=== PATIENT | male | born 1975 | race Caucasian/White ===

== ENCOUNTER → 2024-01-28 15:40 | Outpatient (REF) | payer BC, SELFPAY | LOC: CLAB 15:40 | PROVIDERS: ATTENDING PHYSICIAN Podiatrist Foot & Ankle Surgery | DX: S92.812G Other fracture of left foot, subsequent encounter for fracture with delayed healing (principal) | CPT/HCPCS: 88304; 88311 ==

== ENCOUNTER 2024-03-25 06:28 | Inpatient (IN) | payer BC, SELFPAY ==
[2024-03-25] VITALS (7 sets, daily range): BP systolic 97–150; BP diastolic 56–94; BMI 41.1; BMI 40.8
--- NOTE | 2024-03-25 03:34 | ED.GENMED ---
History of Present Illness
General
Chief Complaint: Abdominal Pain
Source: patient
Exam Limitations: none
Time Seen by Provider: 03/25/24 03:24
Nursing documentation reviewed up to this point in time: agreed with
History of Present Illness
History of Present Illness:
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
Past History
Past History
ED Past Medical History: GERD, HTN, Hypercholesterolemia, Psychiatric (Anxiety, ) and Other (Diverticulitis)
ED Past Surgical History: Bowel resection (Colon resection), Cholecystectomy, Orthopedic (ACL repair, Right rotator cuff) and Other (Gastric sleeve)
Social History
Tobacco: Former smoker
Alcohol: None
Drug: None
Personal:
Living: with family
Employment: Employed
Family History
Family History: Other
Review of Systems
Review of Systems
All Other Systems: Not applicable
Constitutional: Reports fever, fatigue and chills
EENT: Reports no symptoms
Respiratory: Reports no symptoms
ABD/GI: Reports abdominal pain, nausea and diarrhea
: Reports no symptoms
Musculoskeletal: Reports no symptoms
Phy Exam
Physical Exam
Physical Exam:
Physical Exam
General: 48 male looks uncomfortable warm to touch normal mental
Neck: No jaundice
Heart: Tachycardia
Lungs: no acute respiratory distress. clear bilaterally
Abdomen: Localized tenderness in the left lower abdomen
Neuro: alert and oriented. no focal neurological deficits
Skin: no rash
Psychiatric: well kept. interactive and cooperative
Extremities: no edema
Sepsis
Sepsis Screening
Sepsis Assessment: Sepsis Ruled Out
Sepsis Screen
Sepsis Screen: Sepsis Ruled Out
Date: 03/25/24
Time: 05:46
Course
Orders/Labs/Results
Orders:
Orders
03/25/24 03:14
IV Insert/Care/Rem.- Treatment PRN
03/25/24 03:33
CT Abd/pelvis W Iv Cont Urgent
Comment:
Reason For Exam: fever LLQ pain
0.9% Sodium Chloride 1000 ml [Nss] 1,000 ml IV BOLUS
Acetaminophen [Tylenol] 1,000 mg PO NOW STA
HYDROmorphone [Dilaudid] 1 mg IV NOW STA
03/25/24 03:58
Complete Blood Count/With Diff Urgent
Comprehensive Metabolic Panel Urgent
Lactate Level [Lactic Acid] Urgent
Lipase Urgent
Urinalysis Reflex To Culture Urgent
Date Specimen was Collected: 03/25/24
Time Specimen was Collected: 03:14
Blood Culture Urgent
ULYSSES Source: Blood/Venous
Specimen Description:
03/25/24 04:57
Blood Culture Urgent
ULYSSES Source: Blood/Venous
Specimen Description:
03/25/24 05:43
Zosyn 4.5 grams IVPB NOW Piperacillin/Tazo 4.5 Gram [Zosyn] 4.5 gram in 100 ml IV NOW
Abnormal Lab Results
03/25/24
03:58
WBC 12.9 H 10^3/uL
(4.8-10.8)
RBC 4.66 L 10^6/uL
(4.70-6.10)
Abs Immat Gran (auto) 0.1 H 10^3/uL
(0-0.05)
Absolute Neuts (auto) 11.1 H 10^3/uL
(1.4-6.5)
Absolute Lymphs (auto) 1.0 L 10^3/uL
(1.2-3.4)
Absolute Monos (auto) 0.8 H 10^3/uL
(0.1-0.6)
Neutrophils % 85.6 H %
(42.2-75.2)
Lymphocytes % 7.8 L %
(20.5-51.1)
Carbon Dioxide 19 L mmol/L
(22-30)
Glucose 105 H mg/dl
(70-99)
Total Bilirubin 2.2 H mg/dl
(0.2-1.3)
Urine Ketones 3+ A
(Negative)
03/25/24 03:58
03/25/24 03:58
Vital Signs
Initial and Last Documented VS:
Initial Vital Signs
Temp Pulse Resp BP Pulse Ox
100.7 F H 100 20 150/94 96
03/25/24 03:10 03/25/24 03:10 03/25/24 03:10 03/25/24 03:10 03/25/24 03:10
Last Documented Vital Signs
Temp Pulse Resp BP Pulse Ox
100.7 F H 100 20 150/94 96
03/25/24 03:10 03/25/24 03:10 03/25/24 03:10 03/25/24 03:10 03/25/24 03:10
MDM/Problems Addressed
Differential Diagnosis Includes:
Diverticulitis diverticulitis perforation, colitis, less likely appendicitis or bowel obstruction
MDM/Problems Addressed:
Abdominal pain fever
Chronic conditions affecting care: Previous abdomnial surgery
Acute Exacerbation and/or Progression of Chronic Illness: Previous abdomnial surgery
*Radiology
Radiology exam reviewed: radiology read reviewed
*Pulse Oximetry
Patient hypoxic: no
*Breaker Engineer Interpretation
Rate: tachycardiac
Interpretation: abnormal
Heart Rate: 118
*Critical Care Note
Total Time (30-74mins, 75-104mins- exclusive of procedures): Not Applicable
Update Note
Update Note:
Suspect diverticulitis, will check labs start fluids CT scan serial abdominal exams
5:[address] noted patient looks a bit improved
Concerned with a high fever, is not eating or drinking will require admission
ED Attending Note
-
Portions of this chart may have been created with voice recognition software.� Occasional wrong word or��sound alike� substitutions may have occurred due to the inherent limitations of voice recognition software.
Discharge Plan
Departure
Patient Disposition: Admit
Date of Disposition: 03/25/24
Time of Disposition: 05:46
Admit to: Med/Surg
Presentation/result/management discussed w/ accepting MD/DO: Hospitalist
Condition: Fair
Covid-19: Not Applicable
Discharge Problem:
Diverticulitis
Prescriptions:
No Action
atorvastatin 40 mg Tablet
40 mg PO HS
olmesartan 20 mg Tablet
40 mg PO DAILY
pantoprazole 40 mg Tablet,Delayed Release (Dr/Ec)
40 mg PO DAILY
zolpidem [Ambien] 5 mg Tablet
10 mg PO HS
nebivolol 20 mg Tablet
20 mg PO DAILY
Referrals:
Kevon Fernández DO [Family Provider] -
Interventions
Interventions:
*Risk Screen - Suicide Last Done: 03/25/24 03:10
*General Assessment Last Done: 03/25/24 03:10
*Neglect/Abuse Screening Last Done: 03/25/24 03:10
ED- Fall Risk Assessment Last Done: 03/25/24 03:10
*ED COVID-19 Vaccine History Last Done: 03/25/24 03:10
WI-[id number]-Nvtqssebbd Assessment Last Done: 03/25/24 03:28
Discharge Date and Time
Print Language: ITALIAN
[2024-03-25] MEDS: TYLENOL 1000 MG PO (04:04)
[2024-03-25] MEDS: NSS 1000 IV (04:06)
[2024-03-25] MEDS: DILAUDID 1 MG IV (04:07)
[2024-03-25 04:08] LABS: % Basophils 0.3 % (0-2); % Eosinophils 0.1 % (0-6); % Immature Granulocytes 0.4 % (0-0.5); % Lymphocytes 7.8 % (20.5-51.1); % Monocytes 5.8 % (1.7-9.3); % Neutrophils 85.6 % (42.2-75.2); Absolute Immature Granulocytes 0.1 10^3/uL (0-0.05); Absolute Monocytes 0.8 10^3/uL (0.1-0.6); Absolute Neutrophils 11.1 10^3/uL (1.4-6.5); Hematocrit 39.4 % (39.0-52.0); Hemoglobin 13.8 g/dL (13.0-18.0); Mean Corpuscular Hgb 29.6 pg (27.0-31.0); Mean Corpuscular Volume 84.5 fL (80.0-94.0); Mean Platelet Volume 8.8 fL (7.4-10.4); Nucleated Red Blood Cells % 0 % (-); Platelet Count 261 10^3/uL (130-400); Red Blood Cell Count 4.66 10^6/uL (4.70-6.10); Red Cell Dist. Width 12.1 % (11.5-14.5); White Blood Cell Count 12.9 10^3/uL (4.8-10.8)
[2024-03-25 04:28] LABS: Urine Albumin Trace (Neg - Trace); Urine Bilirubin Negative (Negative); Urine Character Clear (Clear); Urine Color Yellow; Urine Glucose Negative (Negative); Urine Ketone 3+ (Negative); Urine Leukocyte Negative (Negative); Urine Nitrite Negative (Negative); Urine Occult Blood Negative (Negative); Urine Urobilinogen Negative (Neg - 1+)
[2024-03-25 04:29] LABS: Lactic Acid 0.7 mmol/L (0.7-2.0)
[2024-03-25 04:31] LABS: ALT (SGPT) 31 U/L (0-50); AST (SGOT) 29 U/L (17-59); Albumin 4.2 g/dl (3.5-5.0); Alkaline Phosphatase 73 U/L (38-126); Blood Urea Nitrogen 13 mg/dl (9-20); Calcium 9.3 mg/dl (8.4-10.2); Carbon Dioxide 19 mmol/L (22-30); Chloride 102 mmol/L (98-107); Estimated Creatinine Clearance > 125 ml/min; Glucose 105 mg/dl (70-99); Lipase 173 U/L (23-300); Potassium 4.1 mmol/L (3.5-5.1); Sodium 137 mmol/L (135-145); Total Bilirubin 2.2 mg/dl (0.2-1.3); Total Protein 6.6 g/dl (6.3-8.2); eGFR > 60.00
[2024-03-25] MEDS: ZOSYN 100 IV (05:52)
--- NOTE | 2024-03-25 06:34 | HPS.HSE ---
Family Physician
-
Family Physician: Kevon Fernández
Chief Complaint
-
Fever and abdominal pain
History of Present Illness
48-year-old male who has a past medical history significant for hypertension, hyperlipidemia and GERD as well as history of diverticulitis status post with previous bowel resection, status post gastric bypass who presents to the emergency department
with 3 days of abdominal pain and fevers.
Patient reported that on he started having generalized chills. Then he developed abdominal pain which is located to the left lower quadrant and nonradiating. He reports mild nausea but no vomiting and no diarrhea. ED he reported poor
appetite. Today he had a fever to as high as 103 and worsening chills and abdominal pain and he decided come to the ED. Patient reported that he had a similar episode in 2005 which resulted in diverticulitis and needed bowel resection afterwards.
He also reports and no other episodes of diverticulitis more recently after that episode and only required antibiotics for treatment. He denied any recent antibiotic use. He denies any recent hospitalizations. He has no known sick contacts.
Denies history of biliary or gallstones.
In the emergency department the patient had a Tmax of 100.7, blood pressure was 103/60 with a pulse of 81. CBC shows a leukocytosis to 13,000 with normal hemoglobin and platelet count. Electrolytes BUN/creatinine were within normal limits. LFT
was notable for a total bili of 2.2 but was otherwise unremarkable. The patient had a CT of the abdomen and pelvis with contrast which showed acute noncomplicated sigmoid diverticulitis.
Medical History
Past Medical History
Past Medical History: Reports GERD, HTN and Hypercholesterolemia
Past Surgical History: Reports Bowel Resection
Additional Past Surgical History:
Gastric bypass
Social History
Tobacco: Non-smoker
Alcohol: Occasional
Drug: None
Personal:
Living: With Family
Employment: Employed
Family History
Family History: Hypertension
Allergies / Home Medications
Allergies reflects when Allergies were last updated in [facility].
Home Medications with original date entered in [facility]
Allergy/Medication List:
Allergies
Allergy/AdvReac Type Severity Reaction Status Date / Time
No Known Allergies Allergy Verified 03/25/24 03:09
Home Medications
atorvastatin 40 mg tablet 40 mg PO HS 03/24/22
nebivolol 20 mg tablet 20 mg PO DAILY 03/24/22
olmesartan 20 mg tablet 40 mg PO DAILY 03/24/22
pantoprazole 40 mg tablet,delayed release 40 mg PO DAILY 03/24/22
zolpidem 5 mg tablet (Ambien) 10 mg PO HS 03/24/22
Review of Systems
-
History Source: Patient
Constitutional: Reports Fever
EENT: Reports No Symptoms
Respiratory: Reports No Symptoms
Cardiac: Reports No Symptoms
Abdomen/GI: Reports Abdominal Pain
: Reports No Symptoms
Musculoskeletal: Reports No Symptoms
Skin: Reports No Symptoms
Neurological: Reports No Symptoms
Endocrine: Reports No Symptoms
Hematologic/Lymphatic: Reports No Symptoms
Psych: Reports No Symptoms
Physical Exam
Vital Signs
Vital Signs
Temp Pulse Resp BP Pulse Ox
99.4 F 81 17 103/60 96
03/25/24 06:07 03/25/24 06:00 03/25/24 06:00 03/25/24 06:00 03/25/24 06:00
Physical Exam
General: Well Developed, Well Nourished and Fever
HEENT: NormoCephalic, Anicteric, Moist mucous membranes and Atraumatic
Respiratory: Clear
Cardiac: S1/S2 and Regular Rhythm
Breast: Deferred by me
GI: Soft, Non Distended, Normal Bowel Sounds and Tender
Rectal: Deferred by Provider
Genito-urinary: Deferred by me
Musculoskeletal: No Clubbing, No Cyanosis and No Edema
Skin: Warm
Neuro: AO x 3
Hematologic/Lymphatic: No Lymphadenopathy
Psych: Calm
Laboratory Results
-
03/25/24 03:58
03/25/24 03:58
Laboratory Results
Lactic Acid 0.7 mmol/L (0.7-2.0) 03/25/24 03:58
Total Bilirubin 2.2 mg/dl (0.2-1.3) H 03/25/24 03:58
AST 29 U/L (17-59) 03/25/24 03:58
ALT 31 U/L (0-50) 03/25/24 03:58
Alkaline Phosphatase 73 U/L (38-126) 03/25/24 03:58
Lipase 173 U/L (23-300) 03/25/24 03:58
Data Reviewed
-
CT Scan: Report Reviewed by me
Lab Data: Labs Reviewed by me
Old Records: Reviewed
Impression/Plan
-
IMPRESSION:
48 M with fever and abdominal pain for 3 days found to have acute uncomplicated sigmoid diverticulitis. Has had prior diverticulitis requiring bowel resection in 2005 and h/o more recent diverticulitis treated with antibiotics. Fever coming down
and hemodynamically stable
PLAN:
1. Diverticulitis - Uncomplicated sigmoid diverticulitis but h/o recurrent disease. No abx or immunosuppression.
- admit to med/surg
- blood cultures sent.
- continue IV zosyn for now
- clear liquid diets, IV LR, antipyretics and pain control
- serial examinations
2. HTN -
- holding olmesartan this am
- continue beta blockade with hold parameters
3. GERD
- on ppi
DVT PPX - lovenox sq
Code Status - Full Code
[2024-03-25] MEDS: BENICAR 40 MG PO (08:55)
[2024-03-25] MEDS: LR 1000 IV ×2 (08:58→23:25)
[2024-03-25] MEDS: PROTONIX 40 MG PO (08:59)
[2024-03-25] MEDS: BYSTOLIC 20 MG PO (09:05)
[2024-03-25] MEDS: DILAUDID 0.5 MG IV ×4 (10:19→23:26)
[2024-03-25] MEDS: FLUSH (NSS) 1 FLUSH IV ×2 (10:20→14:45)
--- NOTE | 2024-03-25 10:52 | W.PN.HOSP.TC ---
Today's Communication/Plan
-
Monitor vital signs see plan
Follow fever curve
Follow cultures
Continue antibiotics
N.p.o.
Nonbillable note
Assessment / Plan
Assessment / Plan
General: Well Developed, Well Nourished and Fever
HEENT: NormoCephalic, Anicteric, Moist mucous membranes and Atraumatic
Respiratory: Clear
Cardiac: S1/S2 and Regular Rhythm
GI: Soft, Non Distended, Normal Bowel Sounds and Tender
Musculoskeletal: No Edema
Neuro: AO x 3
Psych: Calm
Sepsis 2/2 Acute Diverticulitis - Uncomplicated sigmoid diverticulitis but h/o recurrent disease.
hx of surgery 2/2 diverticulitis in past
follow bcx
- continue IV zosyn for now
- NPOs, IV LR, antipyretics and pain control
- serial examinations
HTN -
on olmesartan
- continue beta blockade with hold parameters
GERD
- on ppi
DVT PPX - lovenox sq
Code Status - Full Code
Anticipated Discharge: 24 - 48 hours
Subjective/Interval History
-
Date of Service: March 25, 2024
has pain
Objective Data
-
Labs:
Laboratory Results
03/25/24
03:58
WBC 12.9 H
Hgb 13.8
Hct 39.4
Plt Count 261
Sodium 137
Potassium 4.1
Chloride 102
Carbon Dioxide 19 L
BUN 13
Creatinine 1.0
Glucose 105 H
Calcium 9.3
Total Bilirubin 2.2 H
AST 29
ALT 31
Alkaline Phosphatase 73
Vital Signs:
Vital Signs
Temp Pulse Resp BP Pulse Ox
98.6 F 73 16 127/70 97
11/09/24 07:05 03/25/24 07:00 03/25/24 07:00 03/25/24 07:00 03/25/24 07:00
[2024-03-25] MEDS: ZOSYN 50 IV ×3 (11:25→23:25)
[2024-03-25] MEDS: LOVENOX 40 MG SC (17:32)
[2024-03-25] MEDS: FLUSH (NSS) 2 FLUSH IV (18:35)
[2024-03-25] MEDS: AMBIEN 10 MG PO (21:36)
[2024-03-25] MEDS: LIPITOR 40 MG PO (21:36)
[2024-03-26] MEDS: ROXICODONE 5 MG PO ×4 (02:45→23:33)
[2024-03-26] MEDS: ZOSYN 50 IV ×4 (05:41→23:31)
[2024-03-26 07:00] VITALS: BP 141/85
[2024-03-26 07:05] LABS: Blood Urea Nitrogen 11 mg/dl (9-20); Calcium 8.5 mg/dl (8.4-10.2); Carbon Dioxide 27 mmol/L (22-30); Chloride 103 mmol/L (98-107); Estimated Creatinine Clearance > 125 ml/min; Glucose 94 mg/dl (70-99); Potassium 4.1 mmol/L (3.5-5.1); Sodium 140 mmol/L (135-145); eGFR > 60.00
[2024-03-26 07:19] LABS: % Basophils 0.3 % (0-2); % Eosinophils 0.9 % (0-6); % Immature Granulocytes 0.3 % (0-0.5); % Lymphocytes 16.9 % (20.5-51.1); % Neutrophils 74.6 % (42.2-75.2); Absolute Eosinophils 0.1 10^3/uL (0-0.7); Absolute Lymphocytes 1.1 10^3/uL (1.2-3.4); Absolute Monocytes 0.5 10^3/uL (0.1-0.6); Absolute Neutrophils 4.8 10^3/uL (1.4-6.5); Hematocrit 36.6 % (39.0-52.0); Mean Corp Hgb Conc. 32.8 g/dL (33.0-37.0); Mean Corpuscular Hgb 29.3 pg (27.0-31.0); Mean Corpuscular Volume 89.3 fL (80.0-94.0); Mean Platelet Volume 8.9 fL (7.4-10.4); Nucleated Red Blood Cells % 0 % (-); Platelet Count 201 10^3/uL (130-400); White Blood Cell Count 6.4 10^3/uL (4.8-10.8)
[2024-03-26] MEDS: PROTONIX 40 MG PO (08:31)
[2024-03-26] MEDS: BENICAR 40 MG PO (08:31)
[2024-03-26] MEDS: BYSTOLIC 20 MG PO (08:31)
[2024-03-26] MEDS: DILAUDID 0.5 MG IV (08:34)
[2024-03-26] MEDS: LR 1000 IV (11:22)
--- NOTE | 2024-03-26 11:41 | W.PN.HOSP.TC ---
Addendum entered and electronically signed by Eyad Mcneil MD 03/26/24 16:38:
Appears to be feeling better, start clears
Original Note:
Today's Communication/Plan
-
Monitor vital signs
see plan
Check abdomen x-ray, lactic acid
Increase lactated Ringer's
Pain control
NPO
If symptoms does not improve or get worse then will get colorectal surgery evaluation
Assessment / Plan
Assessment / Plan
General: Well Developed, Well Nourished and Fever
HEENT: NormoCephalic, Anicteric, Moist mucous membranes and Atraumatic
Respiratory: Clear
Cardiac: S1/S2 and Regular Rhythm
GI: Soft, Non Distended, Normal Bowel Sounds and Tender
Musculoskeletal: No Edema
Neuro: AO x 3
Psych: Calm
Sepsis 2/2 Acute Diverticulitis - Uncomplicated sigmoid diverticulitis but h/o recurrent disease.
hx of surgery 2/2 diverticulitis in past
follow bcx NGTD
- continue IV zosyn for now
- NPOs, IV LR, antipyretics and pain control
- serial examinations; pain today; check amdomen xray, lactate. If pain does not improve or labs/vitals get worse then will get colorectal surgery evaluation
HTN -
on olmesartan
- continue beta blockade with hold parameters
GERD
- on ppi
DVT PPX - lovenox sq
Code Status - Full Code
I spent a total of 52 minutes with the patient or on the floor. More than 50% of this time involved counseling and coordination of care.
Anticipated Discharge: > 48 hours
Subjective/Interval History
-
Date of Service: March 26, 2024
has some pain
Objective Data
-
Labs:
Laboratory Results
03/26/24
06:22
WBC 6.4
Hgb 12.0 L
Hct 36.6 L
Plt Count 201 D
Sodium 140
Potassium 4.1
Chloride 103
Carbon Dioxide 27
BUN 11
Creatinine 1.0
Glucose 94
Calcium 8.5
Vital Signs:
Vital Signs
Temp Pulse Resp BP Pulse Ox
98.3 F 76 16 141/85 98
03/26/24 07:00 03/26/24 07:00 03/26/24 07:00 03/26/24 07:00 03/26/24 07:00
I&O
03/25/24 03/26/24 03/27/24
06:59 06:59 06:59
Intake Total 900 / 900 0 / 0
Balance 900 / 900 0 / 0
[2024-03-26 11:52] LABS: Lactic Acid 0.7 mmol/L (0.7-2.0)
[2024-03-26 15:00] VITALS: BP 148/86
--- NOTE | 2024-03-26 15:40 | CM ---
Initial assessment completed with pt at bedside.
Pt is a 48yr old male who was admitted for Diverticulitis.
Pt at baseline lives with his in a multi level home.
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
PCP; Kevon Fernández
Pharm; JOSE GUADALUPE Khan
PLAN; DC to home with no needs identified.
[2024-03-26] MEDS: LOVENOX 40 MG SC (17:19)
[2024-03-26] MEDS: AMBIEN 10 MG PO (21:34)
[2024-03-26] MEDS: LIPITOR 40 MG PO (21:34)
[2024-03-26 23:14] VITALS: BP 120/75
[2024-03-27] MEDS: ROXICODONE 5 MG PO ×2 (04:25→08:26)
[2024-03-27] MEDS: LR 1000 IV ×2 (05:38→06:30)
[2024-03-27] MEDS: ZOSYN 50 IV ×2 (05:39→12:28)
[2024-03-27 07:12] VITALS: BP 149/90
[2024-03-27 07:38] LABS: % Basophils 0.2 % (0-2); % Eosinophils 1.8 % (0-6); % Immature Granulocytes 0.4 % (0-0.5); % Lymphocytes 15.4 % (20.5-51.1); % Monocytes 7.5 % (1.7-9.3); % Neutrophils 74.7 % (42.2-75.2); Absolute Eosinophils 0.1 10^3/uL (0-0.7); Absolute Lymphocytes 0.8 10^3/uL (1.2-3.4); Absolute Monocytes 0.4 10^3/uL (0.1-0.6); Absolute Neutrophils 3.7 10^3/uL (1.4-6.5); Hematocrit 37.9 % (39.0-52.0); Hemoglobin 12.5 g/dL (13.0-18.0); Mean Corpuscular Hgb 28.8 pg (27.0-31.0); Mean Corpuscular Volume 87.3 fL (80.0-94.0); Nucleated Red Blood Cells % 0 % (-); Platelet Count 229 10^3/uL (130-400); Red Blood Cell Count 4.34 10^6/uL (4.70-6.10); Red Cell Dist. Width 11.7 % (11.5-14.5); White Blood Cell Count 4.9 10^3/uL (4.8-10.8)
[2024-03-27] MEDS: BENICAR 40 MG PO (08:26)
[2024-03-27] MEDS: PROTONIX 40 MG PO (08:26)
[2024-03-27 08:27] LABS: Blood Urea Nitrogen 9 mg/dl (9-20); Calcium 8.8 mg/dl (8.4-10.2); Carbon Dioxide 24 mmol/L (22-30); Chloride 103 mmol/L (98-107); Estimated Creatinine Clearance > 125 ml/min; Glucose 91 mg/dl (70-99); Potassium 4.2 mmol/L (3.5-5.1); Sodium 140 mmol/L (135-145); eGFR > 60.00
[2024-03-27] MEDS: BYSTOLIC 20 MG PO (08:27)
--- NOTE | 2024-03-27 11:49 | W.PN.HOSP.TC ---
Today's Communication/Plan
-
Full liquids for lunch
Advance diet as tolerated
Continue antibiotics
Assessment / Plan
Assessment / Plan
General: AAOx3, NAD, morbid obesity
HEENT: NormoCephalic, Anicteric, Moist mucous membranes and Atraumatic
Respiratory: Clear
Cardiac: S1/S2 and Regular Rhythm
GI: Soft, Non Distended, Normal Bowel Sounds and Tender left lower quadrant, no guarding
Musculoskeletal: No Edema
Neuro: AO x 3
Psych: Calm
Sepsis 2/2 Acute Diverticulitis - Uncomplicated sigmoid diverticulitis but h/o recurrent disease. Sepsis resolved. Lactate normal.
hx of surgery 2/2 diverticulitis in past
follow bcx NGTD
- continue IV zosyn for now
-Clinically improving overall. Tolerated clears, advance to full liquids for lunch. If tolerates can advance to low residue for dinner.
Essential HTN -
on olmesartan, amlodipine
- continue beta blockade with hold parameters
GERD
- on ppi
Hyperlipidemia
Morbid obesity due to excess calories
DVT PPX - lovenox sq
Code Status - Full Code
Dispo -can discharge if tolerates low residue diet. Outpatient follow-up with PCP, GI.
Anticipated Discharge: Within 24 hours
Subjective/Interval History
-
Date of Service: March 27, 2024
Patient seen and examined. Less abdominal pain today. No complaints.
Objective Data
-
Labs:
Laboratory Results
03/27/24
07:06
WBC 4.9
Hgb 12.5 L
Hct 37.9 L
Plt Count 229
Sodium 140
Potassium 4.2
Chloride 103
Carbon Dioxide 24
BUN 9
Creatinine 0.8
Glucose 91
Calcium 8.8
Vital Signs:
Vital Signs
Temp Pulse Resp BP Pulse Ox
98.1 F 72 17 149/90 98
03/27/24 07:12 03/27/24 08:27 03/27/24 07:12 03/27/24 08:27 03/27/24 07:12
I&O
03/26/24 03/27/24 03/28/24
06:59 06:59 06:59
Intake Total 900 / 900 240 / 240
Balance 900 / 900 240 / 240
Review of Systems
-
History Source: Patient
All other systems: Reviewed and negative
--- NOTE | 2024-03-27 12:15 | CM ---
Chart reviewed. Met with pt at bedside
Advancing diet
Remains on IV antibiotics
CM remains available for d/c needs
Plan - anticipate home no needs
[2024-03-27] MEDS: NORVASC 10 MG PO (12:28)
[2024-03-27] MEDS: TYLENOL 650 MG PO (14:14)
[2024-03-27 15:05] VITALS: BP 143/89
--- NOTE | 2024-03-27 16:35 | W.DS.TRANS ---
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
-
Discharge Instructions:
Discharge Diagnosis/Procedures Acute sigmoid diverticulitis
Diet Low Residue
Activity As tolerated
Driving Restrictions As prior to admission
Bathing Restrictions None
Instructions:
Stand-Alone Forms:
Changes to Home Medications: No
Discharge Medications:
DC Medications w/original date entered in [facility]
atorvastatin 40 mg tablet 40 mg PO HS High Cholesterol 03/24/22
nebivolol 20 mg tablet 20 mg PO DAILY Blood Pressure 03/24/22
olmesartan 20 mg tablet 40 mg PO DAILY Blood Pressure 03/24/22
pantoprazole 40 mg tablet,delayed release 40 mg PO DAILY Gastrointestinal Issue 03/24/22
amlodipine 10 mg tablet 10 mg PO DAILY Blood Pressure 03/27/24
amoxicillin 875 mg-potassium clavulanate 125 mg tablet 1 tab PO BID #10 tabs 03/27/24
omega-3 acid ethyl esters 1 gram capsule (Lovaza) 2 cap PO BID high triglycerides 03/27/24
oxycodone 5 mg tablet 5 mg PO Q4HPRN PRN moderate pain #15 tabs 03/27/24
Home Medication Changes
Pending Results: No
== END 2024-03-27 17:02 | disposition home or self-care (01) | DRG 872 ==
LOC: 3 WEST ACU 06:28
PROVIDERS: Internal Medicine; ADMITTING PHYSICIAN Internal Medicine; ATTENDING PHYSICIAN Hospitalist; EMERGENCY PHYSICIAN Emergency Medicine; FAMILY PHYSICIAN Family Medicine
DX: A41.9 Sepsis, unspecified organism (principal); K57.32 Diverticulitis of large intestine without perforation or abscess without bleeding; E66.01 Morbid (severe) obesity due to excess calories; Z68.41 Body mass index [BMI] 40.0-44.9, adult; Z90.49 Acquired absence of other specified parts of digestive tract; Z98.84 Bariatric surgery status; I10 Essential (primary) hypertension; K21.9 Gastro-esophageal reflux disease without esophagitis; E78.00 Pure hypercholesterolemia, unspecified; F41.9 Anxiety disorder, unspecified
CPT/HCPCS: 74018; 74177; 80048; 80053; 81003; 83605; 83690; 85025; 87040; 96361; 96365; 96375; 99285; Q9967